=== PATIENT | male | born 1935 | race Caucasian/White ===

== ENCOUNTER 2016-11-22 11:58 | Observation (INO) | payer MEDICARE, BC ==
[2016-11-22 13:47] LABS: Basophils % (A) 0 %; CH 30.6; CHCM 34.2; Eosinophils # (A) 0.1 k/uL (0-0.7); Eosinophils % (A) 1 %; HCT 44.3 % (39.0-53.0); HDW 2.33; HGB 15.3 gm/dL (13.0-17.5); Luc # (Auto) 0.12; Luc % (Auto) 1; Lymphocytes # (A) 0.9 k/uL (1.0-4.8); Lymphocytes % (A) 10 %; MCH 30.9 pg (25.0-35.0); MCHC 34.4 g/dL (31.0-37.0); MCV 89.7 fL (80.0-100.0); Mean Platelet Volume 6.2; Monocytes # (A) 0.6 k/uL (0-1.0); Monocytes % (A) 6 %; Neutrophils # (A) 7.6 k/uL (1.3-7.7); Neutrophils % (A) 82 %; RBC 4.94 m/uL (4.30-5.90); RDW 14.3 % (11.5-15.5); WBC 9.3 k/uL (3.8-10.6)
[2016-11-22 13:51] LABS: Partial Thromboplastin Time 24.8 sec (22.0-30.0); Prothrombin Time 10.5 sec (9.0-12.0)
--- NOTE | 2016-11-22 13:53 | ED ---
Chest Pain HPI - General Chief Complaint: Chest Pain Stated Complaint: Chest Pain Time Seen by Provider: 11/22/16 12:12 Source: patient, family, RN notes reviewed Mode of arrival: EMS Limitations: no limitations - History of Present Illness Initial Comments: This 81-year-old male who was transferred from [facility] for further evaluation of chest pain and started at 7 AM this morning he states it was midsternal nonradiating was heavy seen increase with breathing and certain exertion. His EKG initially shows some evidence of some ST 1 mm depression though elevations.. Be new changes. MD Complaint: chest pain - Related Data Home Medications Medication Instructions Recorded Confirmed Carvedilol [Coreg] 12.5 mg PO BID 11/22/16 11/22/16 Losartan Potassium [Cozaar] 100 mg PO HS 11/22/16 11/22/16 amLODIPine [Norvasc] 10 mg PO DAILY@1200 11/22/16 11/22/16 Allergies Allergy/AdvReac Type Severity Reaction Status Date / Time No Known Allergies Allergy Verified 11/22/16 13:54 Review of Systems ROS Statement: Those systems with pertinent positive or pertinent negative responses have been documented in the HPI. ROS Other: All systems not noted in ROS Statement are negative. EKG Findings - EKG Results: EKG: interpreted by AIYANA, sinus rhythm (Sinus rhythm rate of 98. Interval 124 QRS duration 86 daily since QTC of 360/[address]-T wave configuration prolonged QT.) Past Medical History Past Medical History: Coronary Artery Disease (CAD), GERD/Reflux, Hypertension Additional Past Medical History / Comment(s): colon ca, bph, neck pain History of Any Multi-Drug Resistant Organisms: None Reported Past Surgical History: Joint Replacement Additional Past Surgical History / Comment(s): bowel resection, bilat knee replacement Past Psychological History: Anxiety Smoking Status: Never smoker Past Alcohol Use History: Occasional Past Drug Use History: None Reported General Exam Limitations: no limitations Course Vital Signs 11/22/16 11/22/16 11/22/16 12:03 13:16 14:21 Temperature 97.7 F 78.9 F L Pulse Rate 100 107 H 105 H Respiratory 18 18 18 Rate Blood Pressure 169/89 148/85 169/85 O2 Sat by Pulse 100 99 97 Oximetry 11/22/16 15:45 Temperature Pulse Rate 102 H Respiratory 18 Rate Blood Pressure 151/85 O2 Sat by Pulse 94 L Oximetry Chest Pain MDM - MDM I did review the material from the sending facility. Repeat labs are unremarkable patient still persistently having chest pain he will be admitted I did discuss the case with Dr. Hopkins. Radiology will be consulted Disposition Clinical Impression: Unstable angina pectoris, Chest pain Disposition: ADMITTED IP TO THIS [facility] Condition: Stable Referrals: Coby Hall MD [Primary Care Provider] - 1-2 days Decision Time: 14:00
[2016-11-22 13:55] LABS: ALT 32 U/L (21-72); AST 29 U/L (17-59); Alkaline Phosphatase 77 U/L (38-126); Anion Gap 11 mmol/L; Blood Urea Nitrogen 15 mg/dL (9-20); Calcium 9.1 mg/dL (8.4-10.2); Carbon Dioxide 25 mmol/L (22-30); Chloride 104 mmol/L (98-107); Glucose 115 mg/dL (74-99); Magnesium 1.7 mg/dL (1.6-2.3); Non-African American GFR(MDRD) >60 (>60 ml/min/1.73 sqM); Potassium 3.7 mmol/L (3.5-5.1); Sodium 140 mmol/L (137-145); Total Bilirubin 1.4 mg/dL (0.2-1.3); Total Protein 6.8 g/dL (6.3-8.2)
[2016-11-22 14:10] LABS: Creatine Kinase 35 U/L (55-170)
--- NOTE | 2016-11-22 14:17 | XR ---
EXAMINATION TYPE: XR chest 2V DATE OF EXAM: 11/22/2016 COMPARISON: NONE HISTORY: Chest pain and pressure TECHNIQUE: Frontal and lateral views of the chest are obtained. FINDINGS: There is no focal air space opacity, pleural effusion, or pneumothorax seen. Minimal left basilar atelectasis is seen The cardiac silhouette size is within normal limits. The osseous struc tures are intact. Degenerative changes of the thoracic spine are noted. Surgical clips are seen withi n the right upper quadrant. IMPRESSION: Minimal left basilar subsegmental atelectasis. No focal consolidation.
[2016-11-22 14:23] LABS: Creatine Kinase MB 0.7 ng/mL (0.0-2.4); Troponin I <0.012 ng/mL (0.000-0.034)
[2016-11-22] MEDS ORDERED: amLODIPine 10 MG TAB PO STA (14:31)
[2016-11-22] MEDS ORDERED: NITROGLYCERIN OINT 1 INCH/GM PACKET TOPICAL STA (15:55)
[2016-11-22] MEDS ORDERED: ACETAMINOPHEN TAB 500 MG TAB PO STA (16:53)
[2016-11-22] MEDS ORDERED: SODIUM CHLORIDE 0.9% 1,000 ML IV SCH (17:00)
[2016-11-22] MEDS ORDERED: HEPARIN SODIUM,PORCINE/D5W PMX 25,000 UNIT in DEXTROSE/WATER 1 500ML.BAG IV SCH (17:00)
[2016-11-22] MEDS ORDERED: HEPARIN SODIUM,PORCINE 5,000 UNIT/ML 1 ML VIAL IV ONE (17:00)
[2016-11-22] MEDS ORDERED: NITROGLYCERIN SL TABS 0.4 MG TAB SUBLINGUAL PRN (17:00)
[2016-11-22] MEDS: CARVEDILOL 12.5 MG TAB PO SCH (18:51)
[2016-11-22] MEDS ORDERED: RX INFO: IV CONTRAST WAS GIVEN 1 EACH MISC MISCELLANE PRN (20:15)
[2016-11-22 20:45] LABS: Creatine Kinase 28 U/L (55-170)
[2016-11-22 20:58] LABS: Creatine Kinase MB 0.5 ng/mL (0.0-2.4); Troponin I <0.012 ng/mL (0.000-0.034)
[2016-11-22] MEDS ORDERED: LOSARTAN 50 MG TAB PO SCH (21:00)
--- NOTE | 2016-11-22 21:12 | CT ---
EXAMINATION TYPE: CT angio chest DATE OF EXAM: 11/22/2016 9:06 PM COMPARISON: NONE HISTORY: Chest pain today. CT DLP: 238.40 mGycm Automated exposure control for dose reduction was used. CONTRAST: CTA scan of the thorax is performed with IV Contrast, patient injected with 70 mL of Omnipaque 350, p ulmonary embolism protocol. There are 3-D post processed images.. FINDINGS: There is patchy basilar pulmonary infiltrates and atelectasis. There is no pleural effusion. Heart si ze is normal. There is no pericardial effusion. I see no filling defects in the pulmonary arteries. T here is no evidence of aortic aneurysm or dissection. There is no mediastinal adenopathy. There are n o hilar masses. The bony thorax is intact. There is spurring in the thoracic spine. IMPRESSION: NO EVIDENCE OF PULMONARY EMBOLISM. BASILAR PULMONARY INFILTRATES AND ATELECTASIS.
[2016-11-22] MEDS: traMADol 50 MG TAB PO PRN (21:23)
[2016-11-23] MEDS: NITROGLYCERIN OINT 1 INCH/GM PACKET TOPICAL SCH ×3 (00:15→12:13)
[2016-11-23] MEDS: methylPREDNISolone SOD SUCCI 40 MG/ML 1 ML VIAL IV SCH ×2 (00:22→12:19)
[2016-11-23 01:42] LABS: Creatine Kinase 24 U/L (55-170)
[2016-11-23 01:56] LABS: Creatine Kinase MB 0.4 ng/mL (0.0-2.4); Troponin I <0.012 ng/mL (0.000-0.034)
[2016-11-23] MEDS: traMADol 50 MG TAB PO PRN (03:44)
[2016-11-23 07:33] LABS: Cholesterol 147 mg/dL (<200); HDL Cholesterol 64 mg/dL (40-60)
[2016-11-23 08:19] VITALS: RESP 18
[2016-11-23] MEDS ORDERED: ASPIRIN 325 MG TAB PO SCH (09:00)
--- NOTE | 2016-11-23 11:10 | P.CRDCN ---
<Winnie Helton - Last Filed: 11/23/16 11:10> History of Present Illness Consult date: 11/23/16 History of present illness: This is a 81-year-old male. Past medical history significant for hypertension. Patient presents with complaints of chest tightness. Patient states yesterday morning after waking up at approximately 8:00 while eating breakfast he started feeling chest tightness across his entire chest. This was not associated with any shortness of breath, dizziness, nausea, vomiting or palpitations. There is no radiation of this pain. He states the pain persisted all day while he was at [facility]. They attempted to give him nitroglycerin and he got no relief. They transferred him here and we again attempted to give him nitroglycerin and he still had no relief of this chest discomfort. He states this was ongoing throughout the night and seemed to get better sometime in the middle of the night. He has been coughing recently, nonproductive he follows with Dr. Rodriguez as an outpatient. His last cardiac workup was in 2013 with a Anne scan was normal. His heart rate tends to go up into the with exertion, up to 120. His EKG shows a sinus mechanism with nonspecific ST and T-wave abnormalities. This appears consistent from previous EKG from the office from June 2012. Troponins are negative 3 d- dimer 0.[address] of the chest was done and negative for pulmonary embolism but shows left basilar pulmonary infiltrates and atelectasis, chest x-ray indicates left basilar atelectasis. Review of Systems REVIEW OF SYSTEMS: Patient denies any chest discomfort. No shortness of breath. No diaphoresis. Denies headache, dizziness, blurred vision, double vision. No dyspnea on exertion. Patient denies any stomach discomfort. No nausea, vomiting. No hematochezia. No hematemesis. Denies any black stools or blood in his stools. No syncope. No palpitations. No cough. No recent fever or chills. No muscle weakness or numbness. Past Medical History Past Medical History: Coronary Artery Disease (CAD), Cancer, GERD/Reflux, Hypertension, Osteoarthritis (OA), Sleep Apnea/CPAP/BIPAP, Syncope Additional Past Medical History / Comment(s): APPROX 1989 colon ca-HAD SX AND 6 MONTHS OF CHEMO., bph, neck pain History of Any Multi-Drug Resistant Organisms: None Reported Past Surgical History: Appendectomy, Cholecystectomy, Heart Catheterization, Joint Replacement Additional Past Surgical History / Comment(s): bowel resection, bilat knee replacement, BX LT BREAST WAS NEG Past Anesthesia/Blood Transfusion Reactions: No Reported Reaction Smoking Status: Never smoker - Past Family History Mother Family Medical History: Dementia Additional Family Medical History / Comment(s): SHINGLES Father History Unknown: Yes Additional Family Medical History / Comment(s): AGE 96 IN [facility] "OF OLD AGE" Medications and Allergies Home Medications Medication Instructions Recorded Confirmed Type Carvedilol [Coreg] 12.5 mg PO BID 11/22/16 11/22/16 History Losartan Potassium [Cozaar] 100 mg PO HS 11/22/16 11/22/16 History amLODIPine [Norvasc] 10 mg PO DAILY@1200 11/22/16 11/22/16 History Allergies Allergy/AdvReac Type Severity Reaction Status Date / Time No Known Allergies Allergy Verified 11/22/16 13:54 Physical Exam Vitals: Vital Signs Temp Pulse Pulse Resp BP BP Pulse Ox 11/23/16 08:00 98.1 F 98 18 119/64 94 L 11/23/16 04:00 112 H 16 11/23/16 03:58 98.8 F 98 16 113/66 93 L 11/23/16 00:00 98.2 F 84 16 98/52 96 11/22/16 21:23 95 11/22/16 20:00 89 16 11/22/16 19:46 98.1 F 102 H 16 120/64 99 11/22/16 17:46 98 F 98 18 120/69 96 11/22/16 17:00 98.3 F 111 H 20 124/75 99 11/22/16 15:45 102 H 18 151/85 94 L 11/22/16 14:21 105 H 18 169/85 97 11/22/16 13:16 78.9 F L 107 H 18 148/85 99 11/22/16 12:03 97.7 F 100 18 169/89 100 Intake and Output 11/22/16 11/23/16 11/23/16 22:59 06:59 14:59 Other: # Voids 2 Weight 73.2 kg GENERAL: This is a 81-year-old male in no apparent distress at the time of my examination. HEENT: Head is atraumatic, normocephalic. Pupils are equal, round. Sclerae anicteric. Conjunctivae are clear. Mucous membranes of the mouth are moist. Neck is supple. There is no jugular venous distention. No carotid bruit is heard. LUNGS: Clear to auscultation no wheezes, rales or rhonchi. No chest wall tenderness is noted on palpation or with deep breathing. HEART: Regular rate and rhythm without murmurs, rubs or gallops. S1 and S2 heard. ABDOMEN: Soft, nontender. Bowel sounds are heard. No organomegaly noted. EXTREMITIES: 2+ peripheral pulses with no evidence of peripheral edema and no calf tenderness noted. NEUROLOGIC: Patient is awake, alert and oriented x3. Results 11/22/16 13:31 11/22/16 13:31 Cardiac Enzymes 11/22/16 11/22/16 11/22/16 Range/Units 13:31 13:31 19:45 AST 29 (17-59) U/L CK-MB (CK-2) 0.7 0.5 (0.0-2.4) ng/mL Troponin I <0.012 <0.012 (0.000-0.034) ng/mL 11/23/16 Range/Units 00:48 AST (17-59) U/L CK-MB (CK-2) 0.4 (0.0-2.4) ng/mL Troponin I <0.012 (0.000-0.034) ng/mL Coagulation 11/22/16 11/22/16 11/23/16 Range/Units 13:31 22:34 06:38 PT 10.5 (9.0-12.0) sec APTT 24.8 65.2 H 50.7 H (22.0-30.0) sec Lipids 11/23/16 Range/Units 06:35 Triglycerides 37 (<150) mg/dL Cholesterol 147 (<200) mg/dL HDL Cholesterol 64 H (40-60) mg/dL CBC 11/22/16 Range/Units 13:31 WBC 9.3 (3.8-10.6) k/uL RBC 4.94 (4.30-5.90) m/uL Hgb 15.3 (13.0-17.5) gm/dL Hct 44.3 (39.0-53.0) % Plt Count 242 (150-450) k/uL Comprehensive Metabolic Panel 11/22/16 Range/Units 13:31 Sodium 140 (137-145) mmol/L Potassium 3.7 (3.5-5.1) mmol/L Chloride 104 (98-107) mmol/L Carbon Dioxide 25 (22-30) mmol/L BUN 15 (9-20) mg/dL Creatinine 0.88 (0.66-1.25) mg/dL Glucose 115 H (74-99) mg/dL Calcium 9.1 (8.4-10.2) mg/dL AST 29 (17-59) U/L ALT 32 (21-72) U/L Alkaline Phosphatase 77 (38-126) U/L Total Protein 6.8 (6.3-8.2) g/dL Albumin 4.0 (3.5-5.0) g/dL Current Medications Generic Name Dose Route Start Last Admin Trade Name Freq PRN Reason Stop Dose Admin Amlodipine Besylate 10 mg 11/23/16 12:00 Norvasc PO DAILY@1200 [facility] Aspirin 325 mg 11/23/16 09:00 Aspirin PO DAILY [facility] Carvedilol 12.5 mg 11/22/16 17:30 11/22/16 18:51 Coreg PO Not Given BID-W/MEALS [facility] Heparin Sodium/Dextrose 25,000 500 mls @ 17.41 mls/hr 11/22/16 17:00 17:19 unit/ IV Solution IV 12 units/kg/hr .Q24H [facility] 17.41 mls/hr Protocol Administration 12 UNITS/KG/HR Sodium Chloride 1,000 mls @ 20 mls/hr 11/22/16 17:00 11/22/16 17:15 Saline 0.9% IV 20 mls/hr .Q24H [facility] Administration Losartan Potassium 100 mg 11/22/16 21:00 11/22/16 21:28 Cozaar PO Not Given HS [facility] Methylprednisolone Sodium Succinate 40 mg 11/23/16 00:00 11/23/16 00:22 Solu-Medrol IV 40 mg Q8HR [facility] Administration Miscellaneous Information 1 each 11/22/16 20:15 Rx Info: Iv Contrast Was Given MISCELLANE 11/24/16 20:17 DAILY PRN Per Protocol Nitroglycerin 1 inch 11/23/16 00:00 11/23/16 05:50 Nitro-Bid Oint TOPICAL Not Given Q6HR [facility] Nitroglycerin 0.4 mg 11/22/16 17:00 11/22/16 18:49 Nitrostat SUBLINGUAL 0.4 mg Q5M PRN Administration Chest Pain Tramadol HCl 50 mg 11/22/16 21:16 11/23/16 03:44 Ultram PO 50 mg QID PRN Administration Pain Intake and Output 11/22/16 11/23/16 11/23/16 22:59 06:59 14:59 Other: # Voids 2 Weight 73.2 kg 11/22/16 13:31 11/22/16 13:31 EKG Interpretations (text) EKG indicates a normal sinus mechanism with nonspecific ST and T-wave abnormalities. Repeat EKG from this morning is consistent but shows mild tachycardia. Assessment and Plan Plan: ASSESSMENT 1. Chest pain, not suggestive of ischemia due to persistence nature and relieved by nitroglycerin. 2. Sinus tachycardia 3. Essential hypertension PLAN Obtain echocardiogram and exercise stress echo. If this testing is normal patient is stable for discharge home from a cardiac standpoint. The patient can follow-up with Dr. Rodriguez in the office at [facility] in 2 weeks. Nurse Practitioner note has been reviewed, I agree with a documented findings and plan of care. Patient was seen and examined. <El Graham - Last Filed: 11/24/16 06:45> Physical Exam Vitals: Vital Signs Temp Pulse Resp BP Pulse Ox 11/23/16 12:00 97.6 F 107 H 18 154/75 94 L 11/23/16 08:00 98.1 F 98 18 119/64 94 L Intake and Output 11/23/16 11/23/16 11/24/16 14:59 22:59 06:59 Intake Total 360 Balance 360 Intake: Oral 360 Results 11/22/16 13:31 11/22/16 13:31 Coagulation 11/23/16 Range/Units 06:38 APTT 50.7 H (22.0-30.0) sec Lipids 11/23/16 Range/Units 06:35 Triglycerides 37 (<150) mg/dL Cholesterol 147 (<200) mg/dL HDL Cholesterol 64 H (40-60) mg/dL Intake and Output 0811/23/16 11/24/16 14:59 22:59 06:59 Intake Total 360 Balance 360 Intake: Oral 360 11/22/16 13:31 11/22/16 13:31 Assessment and Plan Plan: patient's chest pains appear to be pruritic. Patient doesn't have local tenderness. Patient was given IV steroids with relief of pain. His cardiac enzymes and EKGs are negative. The pain was not relieved with nitroglycerin.patient's pain appeared to be atypical, , however, ischemia cannot be completely excluded. Patient is being scheduled for stress echo. If that is negative, patient could be discharged.
[2016-11-23] MEDS ORDERED: amLODIPine 10 MG TAB PO SCH (12:00)
[2016-11-23 12:07] VITALS: BP 154/75; PULSE 107; TEMP 97.6
[2016-11-23] MEDS: CARVEDILOL 12.5 MG TAB PO SCH (12:18)
--- NOTE | 2016-11-23 18:05 | HP ---
CHIEF COMPLAINT: 81 -year-old white male came in to ER due to mid sternal nonradiating chest pain. EKG showed ST-T depression. Morphine no help. Admitted. Saw the patient. He had pleuritic type chest pain. I am going to order IV Solu-Medrol, rule out significant ( ) CT of the chest. ALLERGIES: Negative. MEDICATIONS: 1. Coreg. 2. Losartan. 3. Amlodipine. 14 point review of systems negative except for mentioned in HPI. FAMILY HISTORY: Coronary artery disease, GERD, hypertension. Surgical history: Joint replacement. Anxiety. Smoker. 14 point review of systems negative except for what is mentioned in HPI. Vital signs stable. Afebrile. Cardiovascular: S1, S2. Lungs transmitted upper airway sounds. Abdomen: Soft, nontender. Hematological: Negative Homans. : No suprapubic tenderness. Vascular: Normal dorsalis pedis. Posterior tibial. Radial pulses. Pupils equal, round and reactive to light and accommodation. Neurological: Alert and oriented times three. Psych: Fair mood and affect. PLAN: The patient will be admitted. IV Solu-Medrol ( ) will be given. CT of the chest to rule out any significant pulmonary disease. Cardiac workup underway. LULÚ
--- NOTE | 2016-11-23 18:13 | ECHOF ---
Referral Reason:chest pain MEASUREMENTS -------- HEIGHT: 170.2 cm WEIGHT: 73.0 kg BP: IVSd: 1.3 cm (0.6 - 1.1) LVIDd: 4.0 cm (3.9 - 5.3) LVPWd: 1.5 cm (0.6 - 1.1) IVSs: 1.5 cm LVIDs: 1.8 cm LVPWs: 1.5 cm LAESV Index (A-L): 28.24 ml/m Ao Diam: 3.1 cm (2.0 - 3.7) AV Cusp: 1.9 cm (1.5 - 2.6) LA Diam: 3.6 cm (2.7 - 3.8) MV EXCURSION: 15.637 mm (> 18.000) MV EF SLOPE: 52 mm/s (70 - 150) EPSS: 0.2 cm RAP: 5.00 mmHg RVSP: 42.42 mmHg FINDINGS -------- Resting tachycardia (HR>100bpm). This was a technically good study. There is moderate concentric left ventricular hypertrophy. Overall left ventricular systolic function is normal with, an EF between 55 - 60 %. The right ventricle is normal in size and function. Normal LA size by volume 22+/-6 ml/m2. The right atrium is normal in size. Aortic valve is trileaflet and is mildly thickened. The mitral valve leaflets are mildly thickened. Mild mitral regurgitation is present. Moderate tricuspid regurgitation present. There is mild pulmonary hypertension. The right ventricular systolic pressure, as measured by Doppler, is 42.42mmHg. Pulmonic valve appears structurally normal. The aortic root size is normal. The pericardium is normal. CONCLUSIONS -------- 1. Resting tachycardia (HR>100bpm). 2. Mild mitral regurgitation is present. 3. Moderate tricuspid regurgitation present. 4. There is mild pulmonary hypertension. 5. The right ventricular systolic pressure, as measured by Doppler, is 42.42mmHg. 6. Pulmonic valve appears structurally normal. 7. The aortic root size is normal. 8. The pericardium is normal. 9. This was a technically good study. 10. There is moderate concentric left ventricular hypertrophy. 11. Overall left ventricular systolic function is normal with, an EF between 55 - 60 %. 12. The right ventricle is normal in size and function. 13. Normal LA size by volume 22+/-6 ml/m2. 14. The right atrium is normal in size. 15. Aortic valve is trileaflet and is mildly thickened. 16. The mitral valve leaflets are mildly thickened. BROOMCORN SORTER: Elham Adame RDCS
--- NOTE | 2016-11-24 05:55 | ECHOS ---
STRESS ECHOCARDIOGRAM Date of Service: DATE OF SERVICE: 11/23/2016 MEDICATIONS:: BASELINE HEART RATE:: 119 BASELINE BLOOD PRESSURE:: 140/82 MAXIMUM HEART RATE:: 143 MAXIMUM BLOOD PRESSURE:: 187/83 85% MPHR:: 119 100% MPHR:: 140 METS:: 4.4 MAXIMUM STAGE REACHED:: I TOTAL EXERCISE TIME:: 3 minutes INDICATIONS:: Chest pain. CLINICAL INFORMATION:: Mr. Appiah is an 81-year-old gentleman who was admitted to the hospital with a typical chest pain and shortness. Baseline EKG showed sinus rhythm and sinus tachycardia with mild nonspecific T wave changes. Blood pressure at rest is 140/82 with a pulse rate of 119. Patient walked on the Hunter protocol for 3 minutes achieving a maximum heart rate of 143 with blood pressure of 187/83. EKGs taken during and after the exercise did not reveal any significant changes from the baseline. Baseline echo images showed normal wall motion and thickening. Exercise echo images showed augmentation of wall motion and thickening in all the segments. FINAL IMPRESSION: 1. Probably negative stress with nonspecific ST-T abnormalities at baseline. 2. Normal stress echo. MMODL / IJN: [id number] /
== END 2016-11-23 14:58 | disposition home or self-care (01) ==
LOC: EC 11:58 → 3OBS 17:00
PROVIDERS: ADMIT Family Medicine; ATTEND Family Medicine
DX: R07.89 Other chest pain (principal); R94.31 Abnormal electrocardiogram [ECG] [EKG]; I25.10 Atherosclerotic heart disease of native coronary artery without angina pectoris; K21.9 Gastro-esophageal reflux disease without esophagitis; I10 Essential (primary) hypertension; N40.0 Benign prostatic hyperplasia without lower urinary tract symptoms; F41.9 Anxiety disorder, unspecified; F17.200 Nicotine dependence, unspecified, uncomplicated; G47.30 Sleep apnea, unspecified; M19.90 Unspecified osteoarthritis, unspecified site; R00.0 Tachycardia, unspecified; Z82.49 Family history of ischemic heart disease and other diseases of the circulatory system; Z79.899 Other long term (current) drug therapy; Z85.038 Personal history of other malignant neoplasm of large intestine; Z99.89 Dependence on other enabling machines and devices
CPT/HCPCS: 93005 ×2; 96366 ×2; 96375; 96376 ×3; 96365 ×2; 99285 ×2; 36415; 94760; 93017; 93306; 93350; 85379; 80061; 80053; 85652; 82550 ×2; 82553 ×2; 83735; 84484 ×2; 85025; 85610; 85730 ×2; 71020; 71275; G0378 ×2; J1644 ×2; J2920; Q9967

== ENCOUNTER → 2023-08-26 | Outpatient (CLI) | payer MEDICARE, BC ==
--- NOTE | 2023-08-28 16:53 | PE ---
EXAMINATION TYPE: PET CT fusion skull to thigh DATE OF EXAM: 08/26/2023 COMPARISON: CT a chest 11/22/2016 Prior PET/CT: No prior PET CTs at this location HISTORY: Colorectal cancer TECHNIQUE: Following the intravenous administration of 12.14 mCi of F-18 FDG, whole body images are performed from the skull base to the midthigh. Images are reviewed on the computer in the coronal, a xial, and sagittal planes. Reconstructed rotating images are created on independent workstation and reviewed on the computer. A localization and attenuation correction CT is performed in conjunction with the PET scan. DLP: 444.82 mGycm SCAN: Subsequent Blood glucose: 100 mg/dL Average Mediastinum SUV: Average Liver SUV: FINDINGS: NECK: There is a focal area of increased radiotracer accumulation within the medial left pretracheal space within the torus tubarius adjacent to the fossa of Rosenmuller. This has an SUV of 8.39, image 16 THORAX: No abnormal uptake ABDOMEN: No abnormal uptake PELVIS: No abnormal uptake. No suspicious recurrent area. Mild rectal wall thickening is not excluded without abnormal uptake OSSEOUS STRUCTURES: No abnormal uptake LOCALIZATION CT: Calcified lymphadenopathies within the mediastinum and hilum COMPARISON: No significant changes IMPRESSION: 1. Focal area of uptake within the posterior nasal passage within the left torus tubarius. Soft tissu e or osseous metastasis could be considered. 2. No suspicious changes to suggest recurrent or metastatic colorectal neoplasm otherwise evident
== END | disposition home or self-care (01) ==
LOC: RADPETMAIN 10:23
PROVIDERS: ATTEND Family Medicine
DX: C18.9 Malignant neoplasm of colon, unspecified (principal); M27.0 Developmental disorders of jaws
CPT/HCPCS: 78815; A9552

== ENCOUNTER 2023-12-20 10:27 | Day surgery (SDC) | payer MEDICARE, BC ==
[2023-12-11 11:43] VITALS: BMI 26.6
[~2023-12-20 10:27] MED LIST: HYDROmorphone 0.5 MG/0.5 ML SYRINGE IVP PRN
[2023-12-20] MEDS: IV FLUID CONTINUATION 1,000 ML IV ONE ×2 (11:32→12:08)
[2023-12-20] MEDS: LACTATED RINGERS 1,000 ML IV SCH (11:35)
[2023-12-20] MEDS: OXYMETAZOLINE 0.05% NASL SPRAY 1 SPRAY BOTTLE EA NOSTRIL PRN (11:38)
[2023-12-20] MEDS: ONDANSETRON 4 MG/2 ML VIAL IVP ONE (11:39)
[2023-12-20] MEDS: DEXAMETHASONE SOD PHOSPHATE 4 MG/ML 1 ML VIAL IV ONE (11:39)
[2023-12-20] MEDS: FAMOTIDINE 20 MG/2 ML VIAL IV PRN (11:42)
[2023-12-20] MEDS ORDERED: SUCCINYLCHOLINE CHLORIDE 200 MG/10 ML VIAL IV ONE (12:06)
[2023-12-20] MEDS ORDERED: PROPOFOL 10 MG/ML 20 ML VIAL IV ONE (12:06)
[2023-12-20] MEDS ORDERED: PHENYLEPHRINE 10 MG/ML VIAL ONE (12:06)
[2023-12-20] MEDS ORDERED: fentaNYL (PF) 50 MCG/ML 2 ML AMP ONE (12:06)
[2023-12-20] MEDS ORDERED: LIDOCAINE 1% INJ 10MG/ML (20 ML MDV) ONE (12:06)
--- NOTE | 2023-12-20 12:35 | P.OP ---
Date of Procedure: 12/20/23 Preoperative Diagnosis: left nasopharynx lesion Postoperative Diagnosis: same Procedure(s) Performed: nasal endoscopy with biopsy left nasopharynx Anesthesia: LAURENTA Surgeon: Ray Black Estimated Blood Loss (ml): 2 Pathology: other (left nasopharynx) Condition: stable Disposition: PACU Indications for Procedure: estimated 8-year-old white male who had PET scan at outside institution due to a remote history of colorectal cancer. This was at least 20 years ago. He had focal uptake in the area of the torus tubarius on the left and therefore was referred. Asymptomatic from a nasal standpoint. There was minimal lymphoid appearing tissue in the nasopharynx but no other focal lesions. Operative Findings: mild lymphoid appearing tissue in the nasopharynx no otherwise focal lesions. Access Nurse biopsy was taken Description of Procedure: The patient was brought in the operative suite and placed in a supine position. Patient underwent induction of general anesthesia with oral endotracheal intubation without difficulty. The patient was prepped and draped in usual aseptic fashion. Bilateral 0 endoscopic examination was performed in the nasal cavities. Proceeding on the left, was some mild lymphoid appearing tissue in the nasopharynx and near the torus tubarius and therefore multiple small biopsies were taken with the biting sinus biopsy forceps. Hemostasis was then gained with suction cautery. Excellent hemostasis was gained. All this was done to avoid the Rosenmueller's fossa as much as possible to prevent scarring. Once hemostasis was obtained the patient was allowed to emerge from general anes thesia having tolerated procedure well was extubated in the operating suite and transferred to postop recovery area in satisfactory condition.
[2023-12-20 12:44] VITALS: TEMP 97
[2023-12-20 13:01] VITALS: RESP 16
[2023-12-20 13:41] VITALS: BP 140/74; PULSE 65
== END 2023-12-20 14:24 | disposition home or self-care (01) ==
LOC: OR 10:27
PROVIDERS: ATTEND Otolaryngology
DX: R22.0 Localized swelling, mass and lump, head
CPT/HCPCS: 88305